=== PATIENT | female | born 2000 | race American Indian/Alaskan Native ===

== ENCOUNTER 2020-12-22 02:09 | Emergency (ER) | payer OTHER ==
[2020-12-22 02:19] VITALS: BP 124/77
== END 2020-12-22 03:35 | disposition left against medical advice (07) ==
LOC: ED 02:09
DX: O20.8 Other hemorrhage in early pregnancy (principal); Z53.21 Procedure and treatment not carried out due to patient leaving prior to being seen by health care provider; Z3A.01 Less than 8 weeks gestation of pregnancy

== ENCOUNTER 2022-03-02 15:58 | Inpatient (IN) | payer OTHER, MEDICAID ==
[2022-03-02] MEDS ORDERED: LACTATED RINGERS 1,000 ML ONE (16:28)
[2022-03-02] MEDS ORDERED: LOPERAMIDE 2 MG CAP PO PRN (17:22)
[2022-03-02] MEDS ORDERED: LIDOCAINE (2%) 20 MG/1 ML VIAL 20 ML MDV INFILTRATI ONE (17:22)
[2022-03-02] MEDS ORDERED: BUTORPHANOL 2 MG/1 ML INJ IV PRN ×2 (17:22)
[2022-03-02] MEDS ORDERED: TERBUTALINE 1 MG/1 ML INJ SUB-Q PRN (17:22)
[2022-03-02] MEDS ORDERED: OXYTOCIN 10 UNIT/1 ML INJ IM PRN (17:22)
[2022-03-02] MEDS ORDERED: miSOPROStol 200 MCG TAB PR PRN (17:22)
[2022-03-02] MEDS ORDERED: PROMETHAZINE 25 MG TAB PO PRN (17:22)
[2022-03-02] MEDS ORDERED: ePHEDrine SULFATE 50 MG/1 ML INJ IV PRN (17:22)
[2022-03-02] MEDS ORDERED: ACETAMINOPHEN 325 MG TAB PO PRN (17:22)
[2022-03-02] MEDS ORDERED: MINERAL OIL 30 ML ORAL LIQD PO PRN (17:22)
[2022-03-02] MEDS ORDERED: CARBOPROST TROMETHAMINE 250 MCG/1 ML INJ IM PRN (17:22)
[2022-03-02] MEDS ORDERED: METHYLERGONOVINE MALEATE 0.2 MG/ML VIAL IM PRN (17:22)
[2022-03-02] MEDS ORDERED: ONDANSETRON 4 MG/2 ML INJ IV PRN (17:22)
[2022-03-02] MEDS ORDERED: NALOXONE 0.4 MG/1 ML INJ IV PRN (17:22)
--- NOTE | 2022-03-02 17:45 | History and Physical Report ---
History of Present Illness Date of examination: 03/02/22 Date of admission: 03/02/22 15:58 03/02/22 Chief complaint: GDM History of present illness: 22 yo with history of GDM, anemia, depression and unknown GBS, presents for IOL at 39wks gestation. Her GARY 03/09/22. Her diabetes is diet controlled. Past History Past Medical History: other (vit D deficient) Past Surgical History: no surgical history Social history: no significant social history - Obstetrical History Expected Date of Delivery: 03/09/22 Actual Gestation: 39 Week(s) 0 Day(s) : 3 Para: 0 Hx # Term Pregnancies: 0 Number of Pregnancies: 0 Spontaneous Abortions: 0 Induced : 2 Number of Living Children: 0 Medications and Allergies Allergies Allergy/AdvReac Type Severity Reaction Status Date / Time No Known Allergies Allergy Verified 03/02/22 16:29 Active Meds: Active Medications Acetaminophen (Acetaminophen 325 Mg Tab) 650 mg PO Q4H PRN PRN Reason: Pain, Mild (1-3) Butorphanol Tartrate (Butorphanol 2 Mg/1 Ml Inj) 1 mg IV Q2H PRN PRN Reason: Pain, Moderate(4-6) LABOR PAIN Butorphanol Tartrate (Butorphanol 2 Mg/1 Ml Inj) 2 mg IV Q2H PRN PRN Reason: Pain , Severe (7-10) Carboprost Tromethamine (Carboprost Tromethamine 250 Mcg/1 Ml Inj) 250 mcg IM ONCE PRN PRN Reason: Uterine Bleeding Ephedrine Sulfate (Ephedrine Sulfate 50 Mg/1 Ml Inj) 10 mg IV Q2M PRN PRN Reason: Hypotension Oxytocin/Sodium Chloride (Pitocin/Ns 30 Unit/500ml) 30 units in 500 mls @ 2 mls/hr IV TITR MALIKA; Protocol Lactated Ringer's (Lactated Ringers) 1,000 mls @ 125 mls/hr IV DIRECT MALIKA Oxytocin/Sodium Chloride (Pitocin/Ns 30 Unit/500ml) 30 units in 500 mls @ 40 mls/hr IV TITR MALIKA; Protocol Penicillin G Potassium 5 mil. (units/ Sodium Chloride) 50 mls @ 100 mls/hr IV ONCE ONE; Protocol Stop: 03/02/22 17:51 Penicillin G Potassium 2.5 mil (.units/ Sodium Chloride) 50 mls @ 100 mls/hr IV Q4H MALIKA; Protocol Lidocaine (Lidocaine (2%) 20 Mg/1 Ml Vial 20 Ml Mdv) 20 ml INFILTRATI ONCE ONE Stop: 03/02/22 17:23 Loperamide HCl (Loperamide 2 Mg Cap) 2 mg PO ONCE PRN PRN Reason: give with Hemabate Methylergonovine Maleate (Methylergonovine Maleate 0.2 Mg/Ml Vial) 0.2 mg IM ONCE PRN PRN Reason: Uterine Bleeding Mineral Oil (Mineral Oil 30 Ml Oral Liqd) 30 ml PO QHS PRN PRN Reason: Constipation Misoprostol (Misoprostol 200 Mcg Tab) 800 mcg [place] ONCE PRN PRN Reason: Uterine Bleeding Misoprostol (Misoprostol 25 Mcg Tab) 25 mcg PO Q4H MALIKA Naloxone HCl (Naloxone 0.4 Mg/1 Ml Inj) 0.1 mg IV Q2MIN PRN PRN Reason: Res Rate </= 8 or 02 SAT < 92% Ondansetron HCl (Ondansetron 4 Mg/2 Ml Inj) 4 mg IV Q8H PRN PRN Reason: Nausea And Vomiting Oxytocin (Oxytocin 10 Unit/1 Ml Inj) 10 unit IM ONCE PRN PRN Reason: Uterine Bleeding Promethazine HCl (Promethazine 25 Mg Tab) 25 mg PO Q6H PRN PRN Reason: Nausea And Vomiting Terbutaline Sulfate (Terbutaline 1 Mg/1 Ml Inj) 0.25 mg SUB-Q ONCE PRN PRN Reason: Hyperstimulation/Hypertonicity - Vital Signs Vital signs: Vital Signs Temp Pulse Resp BP Pulse Ox 98.4 F 88 16 140/88 94 03/02/22 16:38 03/02/22 16:38 03/02/22 16:38 03/02/22 16:38 03/02/22 16:38 Temp Pulse Resp BP Pulse Ox 98.4 F 83 16 140/88 99 03/02/22 16:38 03/02/22 17:31 03/02/22 16:38 03/02/22 16:38 03/02/22 17:31 - Physical Exam Breasts: Positive: deferred Cardiovascular: Regular rate Lungs: Positive: Clear to auscultation Abdomen: Positive: normal appearance Genitourinary (Female): Positive: normal external genitalia Uterus: Positive: enlarged (gravid) Extremities: Positive: normal Deep Tendon Reflex Grade: Normal +2 - Obstetrical Uterine Contraction Monitor Mode: External Cervical Dilatation: 4 (done by RN) Cervical Effacement Percentage: 50 station: -2 Uterine Contraction Frequency (min): few to none Uterine Contraction Intensity: Mild Results All other labs normal. Assessment and Plan A: GDM AT 39wks diet controlled P: TOCO/EFM monitoring vital sign per protocol Bs fasting and 2hr PP cytotec 25mcg sl q4 x4 doses max
[2022-03-02 17:55] LABS: Hematocrit 28.9 % (30.3-42.9); Hemoglobin 9.9 gm/dl (10.1-14.3); Mean Corpuscular HGB Conc 34 % (30-34); Mean Corpuscular Volume 85 fl (79-97); Platelet Count 204 K/mm3 (140-440); Red Cell Distribution Width 14.3 % (13.2-15.2)
[2022-03-02] MEDS: LACTATED RINGERS 1,000 ML IV SCH (17:55)
[2022-03-02] MEDS: miSOPROStol 25 MCG TAB PO SCH ×2 (17:56→22:17)
[2022-03-02] MEDS ORDERED: OXYTOCIN DRIP 30 UNITS/500 ML BAG IV SCH ×2 (18:00)
[2022-03-02] MEDS ORDERED: PENICILLIN G POTASSIUM 5 MIL.UNITS in SODIUM CHLORIDE 0.9% 50 ML IV ONE (18:30)
[2022-03-02 20:21] LABS: Alanine Aminotransferase 12 units/L (7-56); Albumin 3.4 g/dL (3.9-5); Blood Urea Nitrogen 5 mg/dL (7-17); Hemolysis Index 10; Uric Acid 6.5 mg/dL (3.5-7.6)
[2022-03-02 20:27] LABS: BUN/Creatinine Ratio 8
[2022-03-02 20:59] LABS: Color,Urine Colorless (Yellow)
[2022-03-02 21:00] LABS: Bilirubin,Urine Negative (Negative); Blood,Urine Negative (Negative); Protein,Urine <15 mg/dL mg/dL (Negative); Urobilinogen,Urine 0.2 mg/dL (<2.0)
[2022-03-02 21:06] LABS: Creatinine,Urine 67.9 mg/dL (0.1-20.0); Protein/Creatinine Ratio,Urine 0.16
[2022-03-02] MEDS: PENICILLIN G POTASSIUM 2.5 MIL.UNITS in SODIUM CHLORIDE 0.9% 50 ML IV SCH (22:17)
--- NOTE | 2022-03-02 23:29 | Ultrasound Report ---
US OB limited, US OB BPP wo non-stress INDICATION / CLINICAL INFORMATION: SVITLANA COMPARISON: None available. TECHNIQUE: Using a transcutaneous probe, multiple grayscale, color Doppler, and spectral Doppler imag es of the uterus and fetus were captured and stored. Biophysical profile additionally was performed. FINDINGS: Clinical estimate of gestational age is 39 weeks 0 days, EDC 03/09/2022. A single cephalic fetus is present. Heart rate of 127 bpm. The amniotic fluid index is increased measuring 27.5 cm. Anterior placenta present no specific abnormality of the placenta demonstrated. BREATHING MOVEMENT = 2 GROSS BODY MOVEMENT = 2 TONE = 2 QUALITATIVE AMNIOTIC FLUID VOLUME = 2 TOTAL BIOPHYSICAL SCORE = 8/8 IMPRESSION: 1. Findings compatible with polyhydramnios. 2. Normal biophysical profile score 8/8. Signer Name: Von Moy II, MD Signed: 03/02/2022 11:25 PM Workstation Name: [id number]
[2022-03-03] MEDS: miSOPROStol 25 MCG TAB PO SCH (02:13)
[2022-03-03] MEDS: PENICILLIN G POTASSIUM 2.5 MIL.UNITS in SODIUM CHLORIDE 0.9% 50 ML IV SCH ×3 (02:14→14:28)
[2022-03-03] MEDS ORDERED: NALOXONE 0.4 MG/1 ML INJ IV PRN (06:12)
[2022-03-03] MEDS ORDERED: ePHEDrine SULFATE 50 MG/1 ML INJ IV PRN (06:12)
--- NOTE | 2022-03-03 06:18 | Anesthesia Consultation ---
Anesthesia Consult and Med Hx Date of service: 03/03/22 - Airway Anesthetic Teeth Evaluation: Poor ROM Head & Neck: Adequate Mental/Hyoid Distance: Adequate Mallampati Class: Class III Intubation Access Assessment: Probably Good - Pulmonary Exam CTA: Yes - Cardiac Exam Cardiac Exam: RRR - Pre-Operative Health Status ASA Pre-Surgery Classification: ASA3 Proposed Anesthetic Plan: Epidural - Pulmonary Hx Smoking: No Hx Asthma: No - Cardiovascular System Hx Hypertension: No - Central Nervous System Hx Seizures: No Hx Psychiatric Problems: No - Endocrine Hx Renal Disease: No Hx End Stage Renal Disease: No Hx Non-Insulin Dependent Diabetes: Yes (Diet controlled) Hx Hypothyroidism: No Hx Hyperthyroidism: No - Hematic Hx Anemia: No Hx Sickle Cell Disease: No - Other Systems Hx Alcohol Use: No Hx Substance Use: No Hx Obesity: Yes
[2022-03-03] MEDS ORDERED: fentaNYL-BUPIV 2 MCG/ML-0.125% 200 MCG/100 ML BAG EPIDURAL SCH (07:00)
--- NOTE | 2022-03-03 07:16 | Progress Note ---
Labor Epidural - Labor Epidural Start Time: 06:50 Stop Time: 07:06 Performed by:: ROSARIO HEDRICK Procedure: Patient is requesting epidural for labor pain. H&P and labs reviewed. Procedure explained, questions answered, consent obtained. Patient placed in sitting position with monitors applied. Timeout performed immediately before start of procedure. Prep/drape in usual sterile fashion. Skin localized 3 mL 1% lidocaine at L[3]-L[4] interspace. 17-gauge Touhy epidural needle advanced to ANEL with saline at [8] cm x 1 attempt. No blood/CSF noted via epidural needle. Epidural catheter advanced to [12] cm. Negative aspiration for blood and CSF via catheter, negative response to test dose 3 ml 1.5% lidocaine w/ Epi. Sterile dressing applied followed by tape reinforcement. Patient tolerated procedure well. No immediate complications noted.
[2022-03-03] MEDS: LACTATED RINGERS 1,000 ML IV SCH (07:39)
--- NOTE | 2022-03-03 08:03 | Event Note ---
Date: 03/03/22 S: Feeling ok, epidural in O: Irregular contractions, reports that AROM, CAT I tracing A: Induction of labor for GDM P: Start Pitocin Expect
--- NOTE | 2022-03-03 12:59 | Event Note ---
Date: 03/03/22 S: Just vomited, some pressure with contractions O: C/C/0, Cat I tracing, contractions irregular A: Induction of labor for Gestational diabetes at 39 weeks P: Expect
--- NOTE | 2022-03-03 16:13 | Procedure Note ---
OB Delivery Note - Delivery Date of Delivery: 03/03/22 Surgeon: JACKSON FLOR Estimated blood loss: 200cc - Vaginal Delivery position: OA Intrapartum events: gestational hypertension Delivery induction: misoprostol Delivery augmentation: pitocin Delivery monitor: external FHT Route of delivery: Delivery placenta: spontaneous Delivery cord: 3 umbilical vessels Episiotomy: none Delivery laceration: none Anesthesia: epidural Delivery comments: of a viable female 8#3oz on 03/03 @ 1558 over intact perineum. Lexi and suprapubic pressure applied to deliver the left anterior shoulder. Cord clamped and cut by plasma processing technician and baby passed to the warmer. Terminal meconium noted after delivery. Apgars 7-8. Placenta delivered 3VCI. QBL 200cc. Mother and baby doing well. - Infant A at 1 minute: 7 at 5 minutes: 8 Infant Gender: Female (8#3oz)
[2022-03-03] MEDS ORDERED: LANOLIN/ZINC/DIMETHICONE (LANSINOH) 7 GM TP PRN (16:15)
[2022-03-03] MEDS ORDERED: oxyCODONE /ACETAMINOPHEN 5-325MG TAB PO PRN (16:15)
[2022-03-03] MEDS ORDERED: ACETAMINOPHEN 325 MG TAB PO PRN (16:15)
[2022-03-03] MEDS ORDERED: WITCH HAZEL/ GLYCERIN PAD TP PRN (16:15)
[2022-03-03] MEDS ORDERED: diphenhydrAMINE 25 MG CAP PO PRN (16:15)
[2022-03-03] MEDS ORDERED: MAGNESIUM HYDROXIDE (MOM) ORAL LIQD UDC PO PRN (16:15)
[2022-03-03] MEDS: IBUPROFEN 800 MG TAB PO SCH (23:31)
[2022-03-04 04:27] LABS: Hematocrit 27.2 % (30.3-42.9)
[2022-03-04] MEDS: IBUPROFEN 800 MG TAB PO SCH ×3 (05:29→23:58)
--- NOTE | 2022-03-04 06:05 | Post Anesthesia Evaluation ---
- Post Anesthesia Evaluation Patient Participated: Yes Airway Patent: Yes Stable Respiratory Function: Yes Nausea/Vomiting: No Temp > 96.8F: Yes Pain Manageable: Yes Adequeate Hydration: Yes Anesthesia Complications: No Block Receding Appropriately: Yes Patient on Ventilator: No
--- NOTE | 2022-03-04 09:42 | Progress Note ---
Assessment and Plan PPD#1 doing well 1. Routine care for mom 2. Charge nurse notified and peds as well to evaluate left arm of infant and adequate counseling for mom with how to position the arm 3. Emotional support given All questions encouraged and answered Subjective Date of service: 03/04/22 Principal diagnosis: PPD#1 with gest DM Interval history: Pt voiced concerns that her baby's left arm is not moving, hence she removed swaddle from baby. Mom also states she thought she did well with baby getting stuck and she pushed without any tears. Vag bleed less than a period. Pt is bottle feeding. Denies pelvic pain. Objective - Constitutional Vitals: Vital Signs - 12hr 03/03/22 03/03/22 03/04/22 22:10 23:30 00:29 Temperature 98.0 F Pulse Rate 90 Respiratory 18 Rate Blood Pressure 137/64 Blood Pressure [Right] O2 Sat by Pulse 100 Oximetry O2 Sat by Pulse 98 98 Oximetry [ Posterior Bilateral Throughout] 03/04/22 03/04/22 03/04/22 01:34 03:30 04:00 Temperature 98.6 F Pulse Rate 78 Respiratory 18 Rate Blood Pressure Blood Pressure 115/75 [Right] O2 Sat by Pulse Oximetry O2 Sat by Pulse 98 98 Oximetry [ Posterior Bilateral Throughout] 03/04/22 05:27 Temperature Pulse Rate Respiratory Rate Blood Pressure Blood Pressure [Right] O2 Sat by Pulse Oximetry O2 Sat by Pulse 98 Oximetry [ Posterior Bilateral Throughout] General appearance: Present: no acute distress - Neck Neck: normal ROM - Respiratory Respiratory effort: normal - Breasts Breasts: deferred - Cardiovascular Rhythm: regular Extremities: No edema - Gastrointestinal General gastrointestinal: Present: soft, non-tender - Genitourinary Female genitourinary: other (fundus 1cm below umbilicus and non-tender, slight anterior wall edema; Lochia small) - Neurologic Neurologic: moves all extremities - Psychiatric Psychiatric: cooperative - Labs CBC & Chem 7: 03/04/22 04:02 03/02/22 19:00 Labs: Abnormal lab results 03/04/22 Range/Units 04:02 Hgb 9.0 L (10.1-14.3) gm/dl Hct 27.2 L (30.3-42.9) % Medications & Allergies - Medications Allergies/Adverse Reactions: Allergies No Known Allergies Allergy (Verified 03/02/22 16:29) Home Medications: Home Medications Medication Instructions Recorded Confirmed Last Taken Type No Known Home Medications [No 03/02/22 03/02/22 Unknown History Reported Home Medications] Active Medications: Generic Name Dose Route Start Last Admin Trade Name Freq PRN Reason Stop Dose Admin Acetaminophen 650 mg 03/03/22 16:15 Acetaminophen 325 Mg Tab PO Q4H PRN Pain MILD(1-3)/Fever >100.5/MAJOR Bisacodyl 10 mg 03/03/22 16:15 Bisacodyl 10 Mg Rect Supp [place] BID PRN Constipation Diphenhydramine HCl 25 mg 03/03/22 16:15 Diphenhydramine 25 Mg Cap PO Q6H PRN Itching Ibuprofen 800 mg 03/03/22 17:00 03/04/22 05:29 Ibuprofen 800 Mg Tab PO 800 mg Q6H MALIKA Administration Magnesium Hydroxide 30 ml 03/03/22 16:15 Magnesium Hydroxide (Mom) Oral Liqd Udc PO HS PRN Constipation Multi-Ingredient Ointment 1 applic 03/03/22 16:15 Lanolin/Zinc/Dimethicone (Lansinoh) 7 Gm TP PRN PRN Sore Nipples Oxycodone/Acetaminophen 1 tab 03/03/22 16:15 Oxycodone /Acetaminophen 5-325mg Tab PO Q6H PRN Pain, Moderate (4-6) Sodium Chloride 10 ml 03/03/22 17:00 Sodium Chloride 0.9% 10 Ml Flush Syringe IV 03/11/22 16:59 PRN NR [place]/Glycerin 1 each 03/03/22 16:15 [place]/ Glycerin Pad TP PRN PRN Hemorrhoid/cleansing/soothing
--- NOTE | 2022-03-04 19:48 | Event Note ---
Date: 03/04/22 BP noted to be elevated yesterday, normal this am and borderline this pm. will check PIH labs. Pt remains without headache. Peds has evaluated left arm of baby and spoken with pt.
[2022-03-05] MEDS: IBUPROFEN 800 MG TAB PO SCH ×2 (06:28→23:47)
[2022-03-05 08:04] LABS: Basophils # (Auto) 0.1 K/mm3 (0.0-0.1); Basophils % (Auto) 0.6 % (0.0-1.8); Eosinophils # (Auto) 0.1 K/mm3 (0.0-0.4); Eosinophils % (Auto) 1.6 % (0.0-4.3); Hematocrit 27.1 % (30.3-42.9); Hemoglobin 9.3 gm/dl (10.1-14.3); Lymphocytes # (Auto) 1.9 K/mm3 (1.2-5.4); Lymphocytes % (Auto) 24.4 % (13.4-35.0); Mean Corpuscular HGB Conc 34 % (30-34); Mean Corpuscular Volume 85 fl (79-97); Monocytes # (Auto) 0.5 K/mm3 (0.0-0.8); Monocytes % (Auto) 6.4 % (0.0-7.3); Platelet Count 183 K/mm3 (140-440); Red Blood Count 3.19 M/mm3 (3.65-5.03); Red Cell Distribution Width 14.6 % (13.2-15.2)
[2022-03-05 08:28] LABS: Alanine Aminotransferase 11 units/L (7-56); Albumin 2.7 g/dL (3.9-5); Blood Urea Nitrogen 6 mg/dL (7-17); Calcium 8.4 mg/dL (8.4-10.2); Hemolysis Index 2; Uric Acid 6.4 mg/dL (3.5-7.6)
[2022-03-05 08:39] LABS: BUN/Creatinine Ratio 12
--- NOTE | 2022-03-05 11:55 | Progress Note ---
Assessment and Plan A: PP Day #2 Asymptomatic Anemia GDM A1 P: Follow Routine Orders Increase Dietary Iron Continue GDM Diet D/C Home today RTO in 6 weeks Subjective - Subjective Date of service: 03/05/22 Principal diagnosis: PPD#1 with gest DM Patient reports: appetite normal, voiding normally, pain well controlled, flatus, bowel movement, ambulating normally, other (Denies HAs, visual changes, N&V, and epigastic pain) [place]: doing well, bottle feeding Objective - Vital Signs Latest vital signs: Vital Signs Temp Pulse Resp BP Pulse Ox Pulse Ox 03/05/22 11:10 98 03/05/22 08:06 98.2 F 65 14 146/67 100 03/05/22 01:20 98 03/05/22 01:12 98.2 F 72 20 107/62 97 03/04/22 23:55 98 03/04/22 22:15 98 03/04/22 20:35 98 03/04/22 17:23 98.4 F 81 20 118/73 99 03/04/22 13:06 98.0 F 81 20 141/92 100 Intake and Output 03/04/22 03/05/22 03/05/22 22:59 06:59 14:59 Intake Total 1080 Balance 1080 Intake: Oral 480 Intake, Free Water 600 Other: Total, Intake Amount 480 # Voids Void 2 - Exam Breasts: Present: normal Cardiovascular: Present: Regular rate Lungs: Present: Clear to auscultation, Normal air movement Abdomen: Present: normal appearance, soft, normal bowel sounds Uterus: Present: normal, firm, fundal height below umbilicus Extremities: Present: edema (+1 bilteral non-pitting pedal edema) - Labs Labs: Abnormal lab results 03/05/22 03/05/22 Range/Units 06:47 06:47 RBC 3.19 L (3.65-5.03) M/mm3 Hgb 9.3 L (10.1-14.3) gm/dl Hct 27.1 L (30.3-42.9) % Potassium 3.0 L (3.6-5.0) mmol/L BUN 6 L (7-17) mg/dL Creatinine 0.5 L (0.6-1.2) mg/dL Lactate Dehydrogenase 211 H (91-180) units/L Total Protein 5.2 L (6.3-8.2) g/dL Albumin 2.7 L (3.9-5) g/dL
--- NOTE | 2022-03-05 11:56 | Discharge Summary ---
Providers - Providers Date of Admission: 03/02/22 17:22 Date of discharge: 03/05/22 Attending physician: JESSICA MERCEDES Primary care physician: JESSICA MERCEDES Hospitalization Reason for admission: induction of labor Delivery: Episiotomy: none Laceration: none Other procedures: none complications: none Discharge diagnosis: IUP at term delivered baby: female Condition at discharge: Good Disposition: 01 HOME / SELF CARE / HOMELESS Plan - Provider Discharge Summary Activity: routine, no sex for 6 weeks, no heavy lifting 4 weeks, no strenuous exercise Diet: routine Instructions: routine Additional instructions: [] Smoking cessation referral if applicable(refer to patient education folder for contact #) [] Refer to [facility] Booklet Call your doctor immediately for: * Fever > 100.5 * Heavy vaginal bleeding ( >1 pad per hour) * Severe persistent headache * Shortness of breath * Reddened, hot, painful area to leg or breast * Drainage or odor from incision. * Keep incision clean and dry at all times and follow doctor's instructions regarding bathing/showering - Follow up plan Follow up: JESSICA MERCEDES MD [Primary Care Provider] - 6 Weeks
[2022-03-05] MEDS: POTASSIUM CHLORIDE ER 20 MEQ TAB PO SCH (21:47)
[2022-03-06 09:23] VITALS: BP 136/80
[2022-03-06] MEDS: POTASSIUM CHLORIDE ER 20 MEQ TAB PO SCH (11:11)
== END 2022-03-06 14:30 | disposition home or self-care (01) | DRG 807 ==
LOC: LD 15:58 → UNDOADMIN 15:58 → LD 17:22 → OB 03-03 21:19
PROVIDERS: ADMIT Obstetrics & Gynecology; ATTEND Obstetrics & Gynecology
PROC: 10E0XZZ Delivery of Products of Conception, External Approach (ICD-10-PCS; principal; 2022-03-03)
PROC: 3E0R3BZ Introduction of Anesthetic Agent into Spinal Canal, Percutaneous Approach (ICD-10-PCS; 2022-03-03)
PROC: 00HU33Z Insertion of Infusion Device into Spinal Canal, Percutaneous Approach (ICD-10-PCS; 2022-03-03)
PROC: 3E0P7VZ Introduction of Hormone into Female Reproductive, Via Natural or Artificial Opening (ICD-10-PCS; 2022-03-03)
PROC: 10907ZC Drainage of Amniotic Fluid, Therapeutic from Products of Conception, Via Natural or Artificial Opening (ICD-10-PCS; 2022-03-03)
DX: O13.4 Gestational [pregnancy-induced] hypertension without significant proteinuria, complicating childbirth (principal); Z37.0 Single live birth; Z3A.39 39 weeks gestation of pregnancy; O24.429 Gestational diabetes mellitus in childbirth, unspecified control; O77.0 Labor and delivery complicated by meconium in amniotic fluid; O90.81 Anemia of the puerperium
CPT/HCPCS: 36415; 59200; 76815; 76819; 80053; 81001; 82565; 82570; 82962; 83615; 84132; 84156; 84550; 85014; 85018; 85025; 85027; 86850; 86900; 86901; G0378; J3490; J2540; J2590; J7120; U0003